=== PATIENT | female | born 1950 | race Caucasian/White ===

== ENCOUNTER 2017-04-05 12:59 | Inpatient (IN) | payer MEDICARE, OTHER ==
[~2017-04-05] VITALS: Ht 165.1 cm; Wt 62.4 kg
--- NOTE | ~2017-04-05 | CR157 ---
[facility] A Service of [facility] & [facility] RADIOLOGY TEXT RESULTS PATIENT: KIARRA GRANADOS LOCATION: [facility] 311-01 : [birth year] UNIT #: [id number] AGE: [address]: Mirian Valiente MD SEX: F ORDER DR: [id number] [facility] [address] [facility]. [place], [place] [address] [id number] I MR#: [id number] Acc #: [id number] NAME: KIARRA GRANADOS : 1950 SEX: F STUDY DATE/TIME: 04/05/2017 13:59 UNIT: CEDOF ROOM: 96078 STUDY DESCRIPTION: CR Humerus Min 2 View Rt Attending Physician: Mirian Valiente M.D. Referring Physician: Prakash Trotter M.D. Ordering Physician: Wilfrido Ingram M.D. Primary Care Physician: Prakash Trotter M.D. MEDICAL IMAGING REPORT This report is preliminary unless electronic signature is present EXAM Right humerus 2 views, 04/05/2017 COMPARISON None HISTORY Right shoulder pain after fall at home last night. FINDINGS Comminuted right humeral neck fracture without dislocation. Dictated by... Ashok Zheng M.D. THIS IS AN ELECTRONICALLY VERIFIED REPORT Ashok Zheng M.D. at 04/07/2017 5:01 PM TEV/psc TD: 04/05/2017 21:43 JOB #: [id number] MEDICAL IMAGING REPORT Page 1 of 1 COPY
--- NOTE | ~2017-04-05 | EKG ---
PATIENT: KIARRA GRANADOS UNIT #: [id number] Ventricular Rate: 75 BPM Atrial Rate: 75 BPM P-R Interval: 152 ms QRS Duration: 82 ms Q-T Interval: 434 ms QTC Calculation(Bezet): 484 ms P Dakota: 43 degrees Calculated R Dakota: -46 degrees Calculated T Dakota: 78 degrees Diagnosis Line: Normal sinus rhythm Diagnosis Line: Left anterior fascicular block Diagnosis Line: Abnormal ECG Diagnosis Line: When compared with ECG of 23-MAR-2016 14:28, Diagnosis Line: Nonspecific T wave abnormality no longer evident Diagnosis Line: in Anterior leads Diagnosis Line: QT has lengthened Diagnosis Line: Confirmed by CIRO BRIGHT MD ([id number]) on 04/06/2017 Diagnosis Line: 7:16:24 AM INTERPRETING MD: DEANGELO PUGH
--- NOTE | ~2017-04-05 | CO ---
Unit #: [id number] #: [id number] Patient: KIARRA STEWART [id number] [facility] [place]. [facility] [address] [facility] [facility]. [place], [place] [address] [id number] I MR#: [id number] NAME: KIARRA STEWART ROOM: 311 Age: 66 Sex: F Admission Date: 04/05/2017 : 1950 Attending Physician: Mirian Valiente M.D. Primary Care Physician: Prakash Trotter M.D. Consultation Date: 04/05/2017 CONSULTATION REPORT HISTORY Ms. Stewart is a 66-year-old, who tripped over some drapes in her bedroom and hit her right shoulder up against a metal part of her bed. She had immediate pain and was brought to the emergency room, found to have a proximal humerus fracture that is nondisplaced and does not need surgery, but her mobility is quite limited. We have been asked to see her orthopedically. PAST MEDICAL HISTORY Reveals she lives at home with her , who just recently had abdominal surgery. Asthma like symptoms, hypertension, atrial fibrillation followed by Dr. Yang, hypothyroidism, and depression as well as some reflux. ALLERGIES She has allergies to sulfa. SOCIAL HISTORY She does not smoke, occasionally drinks wine. PAST SURGICAL HISTORY Include a wrist fracture, back surgery, ovarian and uterus have been removed. MEDICATIONS Her medications are in MAR and they are reviewed. REVIEW OF SYSTEMS GENERAL: She denies headaches or blurred vision tonight. No loss of consciousness. LUNGS: She denies shortness of breath or hemoptysis. She denies chest pain or shortness of breath. HEART: She does have an irregular rate. ABDOMEN: She denies distention, nausea, vomiting, or diarrhea. NEUROLOGIC: She denies any numbness or weakness. VASCULAR: She denies any claudication type symptoms when walking. Orthopedically, her only complaint today is her right shoulder. PHYSICAL EXAMINATION GENERAL: Orthopedically reveals that she is alert, awake, and oriented x3. VITAL SIGNS: She has a blood pressure 134/79, pulse is 93. She is afebrile. EXTREMITIES: Exam of her right shoulder; she is in a sling, minimal Unit #: [id number] #: [id number] Patient: KIARRA STEWART swelling. No bruising to closed injury. NEUROVASCULAR: Distally is intact. Any attempted motion is quite painful. IMPRESSION She has a proximal right humerus fracture which we will treat with a sling. She is admitted for mobilization and probably will be discharged tomorrow. Follow up in the office in 2 weeks. Dictated by... Doron Purcell/claire TD: 04/05/2017 17:55 JOB #: [id number] CONSULTATION REPORT Page 1 of 1 X Venkatesh Olguin MD X CONSULTATION REPORT
--- NOTE | ~2017-04-05 | CR169 ---
[facility] A Service of [facility] & [facility] RADIOLOGY TEXT RESULTS PATIENT: KIARRA GRANADOS LOCATION: [facility] 311-01 : [birth year] UNIT #: [id number] AGE: [address]: Mirian Valiente MD SEX: F ORDER DR: [id number] [facility] [address] [facility]. [place], [place] [address] [id number] I MR#: [id number] Acc #: [id number] NAME: KIARRA GRANADOS : 1950 SEX: F STUDY DATE/TIME: 04/05/2017 14:01 UNIT: [facility] ROOM: 07347 STUDY DESCRIPTION: CR Knee 2 Views Lt Attending Physician: Mirian Valiente M.D. Referring Physician: Prakash Trotter M.D. Ordering Physician: Wilfrido Ingram M.D. Primary Care Physician: Prakash Trotter M.D. MEDICAL IMAGING REPORT This report is preliminary unless electronic signature is present EXAM Left knee 2 views, AP and lateral, 04/05/2017 HISTORY Pain after fall at home last night. FINDINGS Degenerative change and osteopenia but no fracture or other acute abnormality. Dictated by... Ashok Zheng M.D. THIS IS AN ELECTRONICALLY VERIFIED REPORT Ashok Zheng M.D. at 04/07/2017 5:01 PM SANTIAGO/smith TD: 04/05/2017 21:40 JOB #: [id number] MEDICAL IMAGING REPORT Page 1 of 1 COPY
--- NOTE | ~2017-04-05 | CR230 ---
[facility] A Service of [facility] RADIOLOGY TEXT RESULTS PATIENT: KIARRA GRANADOS LOCATION: [facility] 311-01 : [birth year] UNIT #: [id number] AGE: [address]: Mirian Valiente MD SEX: F ORDER DR: [id number] [facility] [address]. [place], [place] [address] [id number] I MR#: [id number] Acc #: [id number] NAME: KIARRA GRANADOS : 1950 SEX: F STUDY DATE/TIME: 04/05/2017 UNIT: [facility] ROOM: 94626 STUDY DESCRIPTION: CR Shoulder Min 2 View Rt Attending Physician: Mirian Valiente M.D. Referring Physician: Prakash Trotter M.D. Ordering Physician: Wilfrido Ingram M.D. Primary Care Physician: Prakash Trotter M.D. MEDICAL IMAGING REPORT This report is preliminary unless electronic signature is present EXAM Right shoulder 3 views 04/05/2017 1357 hours HISTORY Patient fell at home last night. Pain with decreased range of motion in shoulder. COMPARISON Right humerus 04/05/2017. FINDINGS AP views in internal-external rotation and a scapula Y-view are performed. There is a comminuted, acute, closed fracture of the proximal humerus. The humeral head appears grossly intact. There is some impaction suggested. Scapula Y-view demonstrates the shaft of the humerus to be anteriorly displaced relative to the head. IMPRESSION Acute, closed, comminuted fracture of the proximal humerus with shaft of humerus displaced anteriorly on the scapula Y-view. The glenoid is intact. The articular surface of the humerus appears intact. Dictated by... Marina Man M.D. THIS IS AN ELECTRONICALLY VERIFIED REPORT Marina Man M.D. at 04/06/2017 9:31 AM Prabhjot TD: 04/05/2017 21:46 JOB #: [id number] [facility] A Service of [facility] RADIOLOGY TEXT RESULTS PATIENT: KIARRA GRANADOS LOCATION: [facility] 311-01 : [birth year] UNIT #: [id number] AGE: [address]: Mirian Valiente MD SEX: F ORDER DR: MEDICAL IMAGING REPORT Page 1 of 1 COPY
--- NOTE | ~2017-04-05 | DS ---
Unit #: [id number] #: [id number] Patient: KIARRA GRANADOS [id number] [address] [address] [id number] I MR#: [id number] NAME: KIARRA GRANADOS ROOM: 311 Age: 66 Sex: F Admission Date: 04/07/2017 : 1950 Discharge Date: 04/11/2017 Attending Physician: Mirian Valiente M.D. Referring Physician: Prakash Trotter M.D. Primary Care Physician: Prakash Trotter M.D. DISCHARGE SUMMARY DISCHARGE DIAGNOSES 1. Status post fall. 2. Right humeral fracture. 3. Atrial fibrillation. 4. Dyslipidemia. 5. Hypertension. 6. Anemia of chronic disease. CONSULTS DURING THIS HOSPITAL STAY 1. Dr. Olguin of Orthopedic Surgery. 2. Dr. James Yang of Cardiology. LABS, DIAGNOSTICS, AND PROCEDURES DURING THIS HOSPITAL STAY 1. Shoulder x-ray shows an acute, closed, comminuted fracture of the proximal humerus with the shaft of humerus displaced anteriorly on the scapula Y-view. The glenoid is intact. The articular surface of the humerus appears intact. 2. Knee x-ray shows no fracture. HISTORY OF PRESENT HOSPITAL STAY Please refer to H and P done by my colleague, Dr. Mirian Valiente, for initial presentation on this female. ACTIVE PROBLEMS DIAGNOSED Status post fall, status post PT/OT evaluation. Discharging to subacute rehab. Right humeral fracture, status post Orthopedic Surgery evaluation. Continue shoulder sling. Outpatient followup with Orthopedic Surgery. Atrial fibrillation, status post evaluation per Cardiology. Continue current medical management. See discharge medication reconciliation as below. Dyslipidemia. Continue statin. Hypertension, stable. Anemia of chronic disease, stable. Discharge hemoglobin and hematocrit 10.1 and 29.7. DISCHARGE MEDICATIONS 1. Percocet 5/325 at 1 tablet p.o. q.4-6 p.r.n. for pain. 2. Tylenol p.r.n. Unit #: [id number] #: [id number] Patient: KIARRA GRANADOS 3. Advair Diskus 1 puff inhaled t.i.d. 4. Eliquis 5 mg b.i.d. 5. Lexapro 10 mg daily. 6. Cardizem 120 mg daily. 7. Betapace 80 mg b.i.d. 8. MiraLAX daily. 9. Zocor 20 mg at bedtime. 10. Synthroid 25 mcg daily. DISPOSITION Patient is being discharged to subacute rehab. FOLLOWUP 1. Follow up with primary care at subacute rehab. 2. Outpatient followup with Cardiology and Orthopedic Surgery. 1. Dictated by... Doron Britt/christ TD: 04/11/2017 17:05 JOB #: [id number] DISCHARGE SUMMARY Page 1 of 1 X Bill Hoffman MD X DISCHARGE SUMMARY
--- NOTE | ~2017-04-05 | HP ---
Unit #: [id number] #: [id number] Patient: CAROLYNE STEWART [id number] [place], [place] [address] [id number] I MR#: [id number] NAME: CAROLYNE STEWART ROOM: 15575 Age: 66 Sex: F Admission Date: 04/05/2017 : 1950 Attending Physician: Mirian Valiente M.D. Referring Physician: Prakash Trotter M.D. Primary Care Physician: Prakash Trotter M.D. HISTORY AND PHYSICAL CHIEF COMPLAINT History of fall. HISTORY OF PRESENTING ILLNESS Miss Carolyne Stewart is a 66-year-old female who has history of paroxysmal atrial fibrillation, hypertension, hyperlipidemia, depression, came because of the fall. According to patient, she fell yesterday while going to the bedroom. She just blacked out and fell on the floor. She could not get up. Her could not get her up so she was lying down on the floor for almost the whole night till three o'clock in the morning when she helped herself somehow on the bed. Patient was brought to ER and found to have right shoulder fracture. Per patient she could have passed out but she does not know. Patient follows up with Dr. Yang for paroxysmal atrial fibrillation and she has a loop recorder in place which was placed about three months ago. She did not have any chest pain. She did not have any dizziness before. She did not have any shortness of breath. No abdominal pain. Right now she has excruciating pain on the right shoulder, level is 10/10. PAST MEDICAL HISTORY Past medical history is again: 1. History of paroxysmal atrial fibrillation on anticoagulation therapy. 2. Hypertension. 3. Hyperlipidemia. 4. History of depression. PAST SURGICAL HISTORY History of: 1. Hysterectomy. 2. Back surgery. 3. Tonsillectomy. 4. Wrist surgery. ALLERGIES Sulfa and iodine. SOCIAL HISTORY Patient is a former smoker, quit in 1981, she drinks wine almost on a daily basis, no history of drug abuse. FAMILY HISTORY The patient's mother at the age of 87 with valvular heart disease. Father at the age of 86 with coronary artery bypass grafting with a Unit #: [id number] #: [id number] Patient: CAROLYNE STEWART history of CABG. One of the patient's sisters has hypertension. HOME MEDICATIONS 1. Eliquis 5 mg b.i.d. 2. Sotalol 80 mg b.i.d. 3. Advair 100/50 one puff inhaler b.i.d. 4. Zocor 20 mg q.h.s. 5. Celexa 10 mg daily. 6. Synthroid 25 mcg daily. REVIEW OF SYMPTOMS As per history of presenting illness. PHYSICAL EXAMINATION GENERAL: Patient is being evaluated in ER room 14. VITAL SIGNS: Blood pressure is 121/71. Respiratory rate 14. Pulse is 70. Temperature 99.0. Oxygen saturation is 97%. HEENT: Head is normocephalic. Eye movements were normal. NECK: Neck is supple. CHEST: Has fair air entry, no additional sounds. CVS: S1, S2 positive. Regular rhythm at this time. ABDOMEN: Abdomen is soft. EXTREMITIES: Negative edema. Right shoulder is in the sling right now. Pulses are palpable. Movement is painful. Exam of the right shoulder was very much limited because of the pain. DIAGNOSTIC STUDIES LABORATORY WORKUP: WBC 8.9, hemoglobin 12.4, hematocrit 35.8 and platelet count of 230, troponin is less than 0.05, glucose 102, sodium 134, potassium 4.3, chloride 99, BUN 10, creatinine 0.6, liver enzymes are stable. ASSESSMENT Patient is being admitted to telemetry unit with: 1. History of fall. 2. Possible syncopal episode. 3. History of paroxysmal atrial fibrillation, on anticoagulation therapy. 4. Hypertension. 5. Hyperlipidemia. 6. Depression. 7. Right shoulder fracture/right humerus fracture. PLAN Plan is admit to telemetry unit. Dr. Olguin has been consulted. Patient's arm is in the sling right now. PT will evaluate the patient in the morning. Patient will not require any surgical procedure. Home medications have been reviewed and adjusted. Pain management will be done. Plan of care has been discussed with patient at length. We will see whether she requires rehab placement. This was discussed with patent. Dictated by Doron Stubbs/ml Unit #: [id number] #: [id number] Patient: CAROLYNE STEWART TD: 04/05/2017 21:06 JOB #: [id number] HISTORY AND PHYSICAL Page 1 of 1 X Mirian Valiente MD HISTORY AND PHYSICAL
[~2017-04-05 12:59] MED LIST: ACTONEL PO; ADVAIR 1001 DISK W/D PO; ADVAIR 250-501 EAC1 PO; ALLERGY INJECTION; ANTIDEPRESSANT; BAYER ASPIRIN325 M1 PO; CLARITIN10 MG PO; DILTIAZEM 24HR240 M1 PO; FLONASE 0.05% N16 G1 NS; FLONASE 0.05% N16 GM; KEFLEX500 MG PO; LEXAPRO PO; METOPROLOL SUCC25 MG PO; SINGULAIR PO; VESICARE PO; ZOCOR PO; ZOLOFT PO
[2017-04-05 14:00] LABS: BASOPHIL% 0.5 % (0-2.5); HEMATOCRIT 35.8 % (35.0-45.0); HEMOGLOBIN 12.4 gm/dL (12.0-16.0); LYMPHOCYTE# 0.7 X10e3 (1.0-3.5); LYMPHOCYTE% 7.9 % (17.0-45.0); MEAN CELL VOLUME 100.9 FL (83-96); MEAN CORPUSCULAR HEMOGLOBIN 34.9 PG (28-34); MEAN CORPUSCULAR HGB CONC 34.6 g/dL (30-36); MEAN PLATELET VOLUME 7.5 FL (6.5-11.5); MONOCYTE# 1.2 X10e3 (0-1.0); MONOCYTE% 12.9 % (3.0-12.0); NEUTROPHIL% 78.7 % (40-75); PLATELET COUNT 230 X10e3 (140-420); RED BLOOD COUNT 3.55 X10e (3.90-5.30); WHITE BLOOD COUNT 8.9 X10e3 (4.0-10.5)
[2017-04-05 14:01] LABS: DIFF IND NO
[2017-04-05 14:13] LABS: POC - CKMB 1.4 ng/mL (0.0-7.9); POC - TROPONIN <0.05 ng/mL (<=0.05)
[2017-04-05 14:21] LABS: INR 1.1; PARTIAL THROMBOPLASTIN TIME 28.5 SECONDS (23.5-31.3); PROTHROMBIN TIME (PATIENT) 11.4 SECONDS (10.0-11.7)
[2017-04-05 14:35] LABS: ALBUMIN SERUM 4.4 g/dL (3.5-5.0); BILIRUBIN, DIRECT 0.3 mg/dL (0.0-0.2); BILIRUBIN,INDIRECT 0.8 mg/dL (0.0-0.9); BILIRUBIN,TOTAL 1.1 mg/dL (0.2-2.0); BUN/CREATININE RATIO 14.28; CALCIUM SERUM 8.9 mg/dL (8.4-10.2); CREATININE SERUM 0.7 mg/dL (0.6-1.4); GLOM FILT RATE Estimated 89.7 mL/min (>60); POTASSIUM 4.3 mmol/L (3.5-5.1); PROTEIN TOTAL SERUM 7.3 g/dL (6.0-8.3)
[2017-04-05] MEDS ORDERED: ZOCOR PO (15:24)
[2017-04-05] MEDS ORDERED: ADVAIR 100-501 EAC1 INH (15:24)
[2017-04-05] MEDS ORDERED: ELIQUIS5 MG PO (15:24)
[2017-04-05] MEDS ORDERED: SOTALOL AF80 M1 PO (15:24)
[2017-04-05] MEDS ORDERED: ESCITALOPRAM OX10 MG PO (15:25)
[2017-04-05] MEDS ORDERED: SYNTHROID25 MCG PO (15:25)
[2017-04-06 05:41] LABS: BASOPHIL% 0.4 % (0-2.5); EOSINOPHIL% 0.3 % (0.0-7.0); HEMATOCRIT 31.6 % (35.0-45.0); HEMOGLOBIN 10.9 gm/dL (12.0-16.0); LYMPHOCYTE# 0.9 X10e3 (1.0-3.5); LYMPHOCYTE% 14.8 % (17.0-45.0); MEAN CELL VOLUME 101.8 FL (83-96); MEAN CORPUSCULAR HGB CONC 34.4 g/dL (30-36); MEAN PLATELET VOLUME 7.8 FL (6.5-11.5); MONOCYTE# 1.1 X10e3 (0-1.0); MONOCYTE% 17.8 % (3.0-12.0); NEUTROPHIL# 4.2 X10e3 (1.5-7.1); NEUTROPHIL% 66.7 % (40-75); PLATELET COUNT 189 X10e3 (140-420); RED CELL DISTRIBUTION WIDTH 14.1 % (11.0-15.5); WHITE BLOOD COUNT 6.3 X10e3 (4.0-10.5)
[2017-04-06 06:04] LABS: DIFF IND NO
[2017-04-06 06:21] LABS: CALCIUM SERUM 8.7 mg/dL (8.4-10.2); CREATININE SERUM 0.4 mg/dL (0.6-1.4); GLOM FILT RATE Estimated 107.8 mL/min (>60); POTASSIUM 3.7 mmol/L (3.5-5.1)
[2017-04-07 05:14] LABS: HEMATOCRIT 27.7 % (35.0-45.0); HEMOGLOBIN 9.5 gm/dL (12.0-16.0); MEAN CELL VOLUME 102.1 FL (83-96); MEAN CORPUSCULAR HGB CONC 34.3 g/dL (30-36); MEAN PLATELET VOLUME 7.7 FL (6.5-11.5); RED BLOOD COUNT 2.71 X10e (3.90-5.30); RED CELL DISTRIBUTION WIDTH 13.8 % (11.0-15.5); WHITE BLOOD COUNT 4.5 X10e3 (4.0-10.5)
[2017-04-08 05:40] LABS: HEMATOCRIT 28.5 % (35.0-45.0); HEMOGLOBIN 9.6 gm/dL (12.0-16.0); MEAN CELL VOLUME 102.9 FL (83-96); MEAN CORPUSCULAR HEMOGLOBIN 34.6 PG (28-34); MEAN CORPUSCULAR HGB CONC 33.6 g/dL (30-36); MEAN PLATELET VOLUME 7.9 FL (6.5-11.5); RED BLOOD COUNT 2.77 X10e (3.90-5.30); RED CELL DISTRIBUTION WIDTH 13.8 % (11.0-15.5)
[2017-04-08 06:05] LABS: CALCIUM SERUM 8.9 mg/dL (8.4-10.2); CREATININE SERUM 0.4 mg/dL (0.6-1.4); GLOM FILT RATE Estimated 107.8 mL/min (>60); POTASSIUM 3.8 mmol/L (3.5-5.1)
[2017-04-10 05:51] LABS: BASOPHIL% 0.3 % (0-2.5); EOSINOPHIL# 0.1 X10e3 (0-0.7); EOSINOPHIL% 1.9 % (0.0-7.0); HEMATOCRIT 28.9 % (35.0-45.0); HEMOGLOBIN 9.9 gm/dL (12.0-16.0); LYMPHOCYTE# 0.8 X10e3 (1.0-3.5); LYMPHOCYTE% 15.7 % (17.0-45.0); MEAN CELL VOLUME 101.2 FL (83-96); MEAN CORPUSCULAR HEMOGLOBIN 34.8 PG (28-34); MEAN CORPUSCULAR HGB CONC 34.4 g/dL (30-36); MEAN PLATELET VOLUME 7.7 FL (6.5-11.5); MONOCYTE# 0.8 X10e3 (0-1.0); MONOCYTE% 16.4 % (3.0-12.0); NEUTROPHIL# 3.3 X10e3 (1.5-7.1); NEUTROPHIL% 65.7 % (40-75); PLATELET COUNT 253 X10e3 (140-420); RED BLOOD COUNT 2.85 X10e (3.90-5.30); RED CELL DISTRIBUTION WIDTH 13.5 % (11.0-15.5)
[2017-04-10 05:57] LABS: DIFF IND NO
[2017-04-10 06:09] LABS: BUN/CREATININE RATIO 22.5; CALCIUM SERUM 9.3 mg/dL (8.4-10.2); CREATININE SERUM 0.4 mg/dL (0.6-1.4); GLOM FILT RATE Estimated 107.8 mL/min (>60); POTASSIUM 3.7 mmol/L (3.5-5.1)
[2017-04-11 07:28] LABS: HEMATOCRIT 29.7 % (35.0-45.0); HEMOGLOBIN 10.1 gm/dL (12.0-16.0); MEAN CELL VOLUME 101.5 FL (83-96); MEAN CORPUSCULAR HEMOGLOBIN 34.6 PG (28-34); MEAN CORPUSCULAR HGB CONC 34.1 g/dL (30-36); MEAN PLATELET VOLUME 7.4 FL (6.5-11.5); RED BLOOD COUNT 2.92 X10e (3.90-5.30); RED CELL DISTRIBUTION WIDTH 13.8 % (11.0-15.5); WHITE BLOOD COUNT 4.7 X10e3 (4.0-10.5)
[2017-04-11 07:54] LABS: CALCIUM SERUM 9.3 mg/dL (8.4-10.2); CREATININE SERUM 0.4 mg/dL (0.6-1.4); GLOM FILT RATE Estimated 107.8 mL/min (>60); POTASSIUM 3.7 mmol/L (3.5-5.1)
== END 2017-04-11 18:20 | DRG 309 ==
LOC: CED 12:59 → CEDOF 15:29 → CED 15:29 → C3A PCU 15:41 → CEDOF 15:41 → CED 15:41 → C3A PCU 22:53 → CEDOF 22:53 → C3A PCU 04-07 15:29 → CEDOF 04-07 15:47 → C3A PCU 04-07 15:47
PROVIDERS: Emergency Medicine; Hospitalist; Physician Assistant Medical
PROC: 2W38X1Z Immobilization of Right Upper Extremity using Splint (ICD-10-PCS; principal; 2017-04-07)
DX: I48.0 Paroxysmal atrial fibrillation (principal); S42.201A Unspecified fracture of upper end of right humerus, initial encounter for closed fracture; R55 Syncope and collapse; E03.9 Hypothyroidism, unspecified; D64.9 Anemia, unspecified; E78.5 Hyperlipidemia, unspecified; Z88.2 Allergy status to sulfonamides; Z79.01 Long term (current) use of anticoagulants; Z87.891 Personal history of nicotine dependence; W18.30XA Fall on same level, unspecified, initial encounter; Y92.019 Unspecified place in single-family (private) house as the place of occurrence of the external cause
CPT/HCPCS: 36415; 73030; 73060; 73560; 80048; 80076; 82550; 82553; 82947; 84484; 85025; 85027; 85610; 85730; 93005; 97110; 97116; 97161; 97165; 97535; 99285; G8978-GP; G8979-GO; G8979-GP; G8980-GO; G8987-GO; G8988-GO